=== PATIENT | female | born 1945 | race Caucasian/White ===

== ENCOUNTER 2017-03-15 11:07 | Inpatient (IN) | payer MEDICARE, BC ==
--- NOTE | ~2017-03-15 | CN ---
Consultation Report [facility] [address] [place]. [address] NAME: BRADLEY DALLAS : 47 STATUS : ADM IN PAT#: [id number] AGE: 72 ADM/REG DATE : 03/15/17 MR#: [id number] REPORT SERV DATE: 03/22/17 DICTATED BY: JOSE J ROSE DATE: 03/22/17 REPORT STATUS : Draft TRANSCRIBED BY: MODL DATE: 03/22/17 PSYCHIATRIC CONSULTATION DATE OF CONSULTATION: 03/22/2017 I reviewed this patient's current and old medical records. I discussed her status with Dr. Moss, who is her current hospitalist. I discussed the patient's history with her sister, Aishwarya. HISTORY OF PRESENT ILLNESS: She was admitted with confusion and fallings at her home. I was consulted to address a possible element of depression. She has had old and new CVAs in the left thalamus and in the distribution of the right posterior cerebral artery. Her level of agitation appears to fluctuate quite a bit, raising the possibility of a depressive element. PAST PSYCHIATRIC HISTORY: Her sister said that the patient was always careless about her grooming and house keeping. This aspect of her personality deteriorated further after she had her first stroke about two years ago. The patient also was experiencing progressive loss of eyesight, due to macular degeneration, and she was becoming increasingly dependent on neighbors, friends, and home care for support. Her sister reported no significant psychiatric issues, but she thought that the patient might have had a low grade, chronic depression which never was addressed. SOCIAL HISTORY: She is single. She lives alone. She never . 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 She quit driving about three years ago because of her deteriorating eyesight. MENTAL STATUS: She was awake. She opened her eyes and made brief eye contact in response to my calling her name. She complained of needing to urinate even though she had just had an episode of urinary incontinence about 5 minutes previously. She said "yes" and "no" in an inconsistent manner in response to my questions. She did not engage in any other conversation. DIAGNOSIS: Encephalopathy, post stroke. Probable vascular dementia. RECOMMENDATIONS: It is not at all clear that depression might be a consideration here. Dr. Hutton's recommendation for a trial of Depakote might be the best option. However, I would have no objection to an empirical trial of an antidepressant, at the discretion of the hospitalist. I will sign off. KIERRA/JEROME Jose J Rose M.D. Consultation Report [address] [place]. [address] NAME: BRADLEY DALLASRAINE : 47 STATUS : ADM IN PAT#: [id number] AGE: 72 ADM/REG DATE : 03/15/17 MR#: [id number] REPORT SERV DATE: 03/22/17 DICTATED BY: JOSE J ROSE DATE: 03/22/17 REPORT STATUS : Draft TRANSCRIBED BY: JEROME DATE: 03/22/17 / [id number] CC: Brannon Brian M.D.
--- NOTE | ~2017-03-15 | HP ---
History And Physical [place] [id number] [facility] [place]. [address] NAME: BRADLEY DALLAS : 47 STATUS : ADM IN [facility]#: [id number] AGE: 71 ADM/REG DATE : 03/15/17 MR#: [id number] REPORT SERV DATE: 03/15/17 DICTATED BY: GEOFFREY PURVIS DATE: 03/15/17 REPORT STATUS : Draft TRANSCRIBED BY: MODL DATE: 03/15/17 DATE OF ADMISSION: 03/15/2017 CHIEF COMPLAINT: Confused, falling. HISTORY OF PRESENT ILLNESS: Obtained from the patient, who is rather a poor historian due to her present medical condition, as well as the patient's sister at the bedside, and emergency room documents. Also, prior medical records available to us were thoroughly reviewed. According to the information available, the patient is a pleasant, 71-year-old white woman with a history of diabetes type 2, insulin dependent, hypertension with a previous stroke in 2014, who was brought over to the emergency room by EMS because of confusion and falls. The patient's family reported that for the last several days, the patient has been very confused, calling them at night, they did not know what happened, what is calling, they did not know exactly what is going on. The patient apparently had a fall and was hurting her right arm, and she was evaluated at [facility]. She apparently declined admission at that time and was sent home. She apparently fell again, and today when her sister went to check on her, she was found confused, up on the floor with urine and feces all over her house, unclean, apparently, unable to take care of herself. There are no other complaints besides the fact that her right arm hurts, but able to move spontaneously and upon command. There is no recent change in her medications, but the patient's sister states that because of her confusion, she may not be taking her medications right and has not been checking her sugar right. The patient lives alone apparently for several years now. In the emergency room, the patient was investigated and had a CT scan of the head/brain with no acute intracranial pathology and significant findings for urinary tract infection, elevated CK with rhabdomyolysis, as well as hypokalemia. Because of the above presentation with recurrent falls and the above findings, the patient was referred to the Hospitalist Service for further management and evaluation. Presently, the patient is comfortable in bed and she is asking to go home. Denies any chest pain. Denies any head trauma. She stated that she had only one fall when she hit her right arm/right shoulder. Denies any dysuria or hematuria. Denies any nausea, vomiting, or diarrhea. Denies any change in appetite. Denies any recent weight loss. She complains mostly of being weak in general and myalgias. PAST MEDICAL HISTORY: Significant for hypertension, significant for mild systolic dysfunction by 2D echo in 01/2015, history of diabetes type 2, insulin dependent, history of GERD, history of osteoarthritis, history of "bladder cancer," history of hyperlipidemia, history of CVA for which she was admitted in 2014 under Hospitalist Service, history of possible asthma/COPD. PAST SURGICAL HISTORY: Significant for bladder cancer tumor in 2009, initially followed by Dr. Yancey of Urology. The patient apparently had surgery and "chemotherapy." History of bilateral cataract surgery in , history of left finger tendon repair in 2004, appendectomy, tonsillectomy, and adenoidectomy. Cholecystectomy at age 27. ALLERGIES: PERCOCET, PENICILLIN, CODEINE, HYDROCODONE, TETRACYCLINES, LEVAQUIN. HOME MEDICATIONS: According to list provided, the patient is supposed to take Hyzaar 100/25 History And Physical [address] [address] NAME: BRADLEY DALLAS : 47 STATUS : ADM IN [facility]#: [id number] AGE: 71 ADM/REG DATE : 03/15/17 MR#: [id number] REPORT SERV DATE: 03/15/17 DICTATED BY: GEOFFREY PURVIS DATE: 03/15/17 REPORT STATUS : Draft TRANSCRIBED BY: MODL DATE: 03/15/17 one p.o. daily, Norvasc 5 mg p.o. daily, Humalog insulin according to sliding scale, Levemir insulin 64 units subcu b.i.d., naproxen, Aleve 220 mg p.o. daily p.r.n. pain. FAMILY HISTORY: Significant for hypertension and coronary artery disease. SOCIAL HISTORY: Denies tobacco abuse. She used to smoke over [id number]-yage smoking, apparently quit in 2012 or 2013. She had used E-cigarettes for a while. Denies alcohol abuse. Denies illicit recreational drug abuse. Lives alone. Presently retired. REVIEW OF SYSTEMS: Per H and P, otherwise negative in all review of systems. Please note, the comprehensive review of system was obtained and pertinent positives were including in the H and P. PHYSICAL EXAMINATION: GENERAL: Pleasant, cooperative, but pale, frail, overall ill appearing. VITAL SIGNS: Upon arrival in the emergency room, blood pressure 137/58, pulse 88, respiratory rate 15, temperature 98.1, oxygen saturation 100% on 2 L by nasal cannula. HEENT: With bilateral cataracts. External ocular movements intact. Throat, mild erythema. No exudate. Normocephalic with a small bruise around the left nondenominational and left infraorbital area. No other obvious head trauma noticed. NECK: Supple. No JVD. No bruits. No thyromegaly. No lymph nodes. LUNGS: Bilateral air entry with few bibasilar crackles. Good airway movement. No wheezing. HEART: Positive S1, S2. Regular rate and rhythm. Positive mitral regurgitation murmur at the apex. No rub. No gallop. PMI nondisplaced by palpation. ABDOMEN: Positive bowel sounds. Soft, nontender, no guarding, no hepatosplenomegaly. EXTREMITIES: Decreased range of motion with osteoarthritic changes. No clubbing, no cyanosis, no edema, no calf tenderness. +2 pulses. Noted upon palpation tenderness on the right arm/biceps area with decreased range of motion. Tender upon palpation and with range of motion of the right shoulder joint. No fluctuance noticed. Good distal sensation and good distal capillary refill. Good distal pulses. NEUROLOGIC: Alert and oriented x2. Less oriented to time, slightly confused, easily reoriented with global generalized weakness. Grossly nonfocal. Cranial nerves 2 through 12 grossly intact. Motor strength 4 to 5 out of 5, symmetrical and bilateral. Deep tendon reflexes 2/2, symmetrical, bilateral. BACK: With decreased range of motion. No focal localized tenderness. No CVA tenderness. SKIN: No bruises, no rashes, no lacerations (besides the above-mentioned changes). SIGNIFICANT LABORATORY DATA: EKG (personal reading) showed normal sinus rhythm at 81 beats per minute. Old inferior wall HI. No acute ST elevation. Chest x-ray (personal reading) showed no acute infiltrate. Atherosclerosis aorta. Urine drug screen negative. Serum drug screen negative. Sodium 142, potassium 2.8, chloride 106, bicarb 29, BUN 8, creatinine 0.81, glucose 207, calcium 8.7, magnesium 1.8. Total protein 7 with albumin 2.5. Total bilirubin 0.7. Alk phos 77, AST 38, ALT 17. CK 1200 and troponin-I 0.06. Urinalysis showed hazy appearance, protein more than 500, glucose 150, ketones trace, small blood, trace LE, white cells 21, and rare bacteria. White cell count 10.7, hemoglobin 12.3, platelet count 267. Pro-time 15.2, which is slightly elevated. CT scan of the head/brain History And Physical [address] [address] NAME: BRADLEY DALLAS : 47 STATUS : ADM IN PAT#: [id number] AGE: 71 ADM/REG DATE : 03/15/17 MR#: [id number] REPORT SERV DATE: 03/15/17 DICTATED BY: GEOFFREY PURVIS DATE: 03/15/17 REPORT STATUS : Draft TRANSCRIBED BY: JEROME DATE: 03/15/17 by preliminary report from emergency room showed no acute intracranial abnormality. Old left thalamus lacunar infarct. Chronic microvascular white matter ischemic changes. ASSESSMENT AND PLAN/PROBLEM LIST: The patient is a pleasant 71-year-old white woman, admitted with altered mental status, urinary tract infection, rhabdomyolysis, hypotension. IMPRESSION: 1. Neurologic problem:. a. Acute encephalopathy likely metabolic due to urinary tract infection. b. Cerebrovascular disease, status post prior cerebrovascular accident. c. Possible mild cognitive impairment. For all the above, the patient has been admitted on the Hospitalist Service. We are going to provide the monitor setting and schedule neurologic checks. Obtain an MRI of the brain. Treat potential reversible causes such as UTI and rhabdomyolysis. Check a TSH, vitamin B12, and folate as correction would greatly improve her quality of life. Continue aspirin 162 mg daily and continue blood pressure and cholesterol management. 1. Renal and problem:. a. UTI without hematuria/acute cystitis. Going to obtain a urine culture. Continue Rocephin 1 g IV daily. b. Proteinuria, possibly significant. We are going to obtain a 12-hour urine collection for proteinuria and creatinine clearance. c. History of bladder cancer. Continue to monitor clinically. Consider further imaging and followup. 2. Endocrinologic problem:. a. Diabetes type 2, insulin dependent, uncontrolled with complications. We are going to use sliding scale. Continue decreased dose of Levemir/Lantus. Check hemoglobin A1c. Provide diabetic education. b. Hyperlipidemia, mixed type by history. Presently on no treatment. Obtain a lipid profile in a.m. Provide low-cholesterol diet. 3. Cardiovascular:. a. Hypertension, essential hypertension. We are going to continue Norvasc and continue losartan without HCTZ. Use IV hydralazine p.r.n. for increased blood pressure. b. Elevated troponin-I, likely on demand subendocardial ischemia. Continue to monitor. Check a CK-MB, troponin-I, and EKG, and repeat a 2D echo. c. Mild systolic dysfunction by history. Ejection fraction 45% in 2014. Obtain repeated 2D echo. Continue aspirin. Continue ARB as tolerated. 4. Musculoskeletal problem:. a. Rhabdomyolysis, traumatic, possible only mild due to falls. Continue IV hydration. Monitor CK and troponin-I. b. Osteoarthritis, osteoporosis, deconditioning, and debilitation. Obtain Physical Therapy evaluation. c. Right shoulder and right arm pain, status post trauma. Obtain records from [facility]. Obtain Orthopedic consult for "Physical Therapy evaluation." Obtain imaging. d. Status post fall, recurrent. 5. Miscellaneous:. History And Physical [address] [address] NAME: BRADLEY DALLAS : 47 STATUS : ADM IN [facility]#: [id number] AGE: 71 ADM/REG DATE : 03/15/17 MR#: [id number] REPORT SERV DATE: 03/15/17 DICTATED BY: GEOFFREY PURVIS ION DATE: 03/15/17 REPORT STATUS : Draft TRANSCRIBED BY: MODL DATE: 03/15/17 a. Hypokalemia and electrolyte abnormalities. Replace potassium. Check magnesium, phosphorus, and activate electrolyte replacement protocol. b. Gastroesophageal reflux disease without esophagitis. Provide anti- GERD/anti-reflux instructions and dietary changes. Use Protonix 40 mg p.o. daily. c. Hypoalbuminemia, possible malnutrition. Check a prealbumin level. PROGNOSIS: Moderately good for this admission. Discussed with the patient and the patient's sister present at bedside. Questions were answered in full. Please note, also the written H and P, written orders, and instructions. Please note, the patient is a full code at this moment as discussed with the patient and family at bedside. REAGAN/JEROME Geoffrey Purvis M.D. / [id number] CC: SIXTO ELENA
--- NOTE | ~2017-03-15 | CN ---
Consultation Report [facility] [address] [place]. [address] NAME: BRADLEY DALLAS : 47 STATUS : ADM IN [facility]#: [id number] AGE: 72 ADM/REG DATE : 03/15/17 MR#: [id number] REPORT SERV DATE: 03/23/17 DICTATED BY: KRISTI YI DATE: 03/22/17 REPORT STATUS : Draft TRANSCRIBED BY: MODL DATE: 03/22/17 CARDIOLOGY CONSULTATION DATE OF CONSULTATION: INDICATION: Cryptogenic stroke. HISTORY: The patient is a 72-year-old white female, who presented 03/15/2017 with confusion and falling. She has a previous history of stroke in 2014. The neurologist states that at the time of her EEG there was a question as to whether or not she may have had atrial fibrillation. 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 Rest to determine whether or not anticoagulation therapy or other cardiac medications would be appropriate. The patient is an extremely poor historian. Her sister has power of employment law attorney and I have not been able to get in touch with her at the phone numbers that we have. The patient states that she does live independently, but she is extremely unkempt. Apparently, she has always been careless about her grooming, but her hygiene at this evaluation appears to be quite poor. Presently, she is in [facility]. She underwent toenail debridement in the OR on 03/18/2017 due to poor hygiene and self neglect. She had a history of rhabdomyolysis after her fall which has resolved. The patient states that she sets out and takes her own medication, although it is not clear to me that she is competent to adhere to any structured regimen on her own. She has recently been started on Keppra due to the finding of a seizure disorder. Medications prior to admission amlodipine 5 per day, insulin 64 units b.i.d., insulin Humalog, insulin lispro, sliding scale, losartan hydrochlorothiazide 100/25 one tablet daily, and naproxen 220 p.r.n. ALLERGIES OR INTOLERANCES: Oxycodone, penicillin, codeine, hydrocodone, acetaminophen, tetracycline, and levofloxacin. SOCIAL HISTORY: As mentioned, she lives alone. She has never been . 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 She has [id number] smoking history having quit in 2013 or 2013. Negative for alcohol use. FAMILY HISTORY: Positive for hypertension and coronary artery disease. PAST MEDICAL HISTORY/REVIEW OF SYSTEMS: History of bladder cancer in 2009 with previous history of surgery and chemotherapy. She has had bilateral cataract surgery in , left finger tendon repair in 2004, previous appendectomy, tonsillectomy, and adenoidectomy. She had a cholecystectomy at age 27. Medical history is positive for hypertension, type 2 Consultation Report [place] [id number] [facility] [place]. [address] NAME: BRADLEY DALLAS : 47 STATUS : ADM IN [facility]#: [id number] AGE: 72 ADM/REG DATE : 03/15/17 MR#: [id number] REPORT SERV DATE: 03/23/17 DICTATED BY: KRITSI YI DATE: 03/22/17 REPORT STATUS : Draft TRANSCRIBED BY: JEROME DATE: 03/22/17 diabetes, GERD, osteoarthritis, hyperlipidemia, and the previous stroke. She has underlying COPD. An echocardiogram from 02/14/2015 showed global hypokinesis with EF of 45%. PHYSICAL EXAMINATION: GENERAL: 72-year-old white female, with poor hygiene, somewhat confused, although she will answer questions that are pointed, some of the questions similar responses are confabulated. HEENT: She has poor dentition. Sclerae are white. JVD is not elevated. CHEST: There are no crackles. CARDIAC: S1 normal, S2 is physiologic. No S3 or S4. ABDOMEN: Soft. EXTREMITIES: Without edema. Skin care is poor with flaking and desquamation. She has mittens on her hands to prevent injury due to underlying agitation. LABORATORY DATA: Echocardiogram from 02/14/2015 shows an EF of 55% with mild diastolic dysfunction. No significant valvular disease. Carotid studies are pending. MRI shows the infarcts as described above with an acute lacunar infarcts in the right thalamus. There was a second MRI from 03/15/2017 which shows the infarct involving the medial right temporal lobe, right occipital and right thalamus. Her BUN on admission was 184, BUN 6, creatinine 0.75, glucose 178. Troponin on admission was 0.06 with a CPK of 827. White count on admission was 10.7, hemoglobin 12.8, platelets are 64,000. ECG thus far have shown only sinus rhythm with occasional PACs. There was some strips showing sinus tachycardia. There was no documented atrial fibrillation. IMPRESSION: Recurrent strokes in a 72-year-old white female with multiple medical and psychiatric issues. She would not be a candidate for warfarin. I do not believe she would be able to manage this medication. Whether or not she could take one of the newer anticoagulants would depend on how attentive her family is to making sure she gets her medications appropriately. I do not believe that she has the wherewithal to adhere to medical regimen with medications that would be dangerous if they were either inadvertently overdosed or if the doses were missed. I will try to contact her sister to get a better understanding of the patient's ability to comply before making any recommendations. Further advice is forthcoming. PARVEEN/JEROME Kristi Yi M.D. / [id number] CC: Colten Ramey M.D. Consultation Report [address] [address] NAME: BRADLEY DALLAS : 47 STATUS : ADM IN [facility]#: [id number] AGE: 72 ADM/REG DATE : 03/15/17 MR#: [id number] REPORT SERV DATE: 03/23/17 DICTATED BY: KRISTI YI DATE: 03/22/17 REPORT STATUS : Draft TRANSCRIBED BY: JEROME DATE: 03/22/17 [facility]
--- NOTE | ~2017-03-15 | CN ---
Consultation Report [facility] [address] [place]. [address] NAME: BRADLEY DALLAS : 47 STATUS : ADM IN [facility]#: [id number] AGE: 71 ADM/REG DATE : 03/15/17 MR#: [id number] REPORT SERV DATE: 03/16/17 DICTATED BY: RYLEY MONTANEZ DATE: 03/16/17 REPORT STATUS : Draft TRANSCRIBED BY: MODMichelle DATE: 03/16/17 CONSULTATION DATE OF CONSULTATION: CHIEF COMPLAINT: Arm pain, status post fall. HISTORY OF PRESENT ILLNESS: This is a 71-year-old, white female, with history of diabetes, hypertension, stroke in 2015, who presents with confusion and falls. She apparently had become confused over several days and was found at home confused, unkempt, and wandering around her house. She has presented with altered mental status. In the ER, she had a CT scan with no acute intracranial pathology. She did have a UTI and elevated CK as well as hypokalemia. She complains only of right arm pain. She has been difficult to get a history with her waxing and waning mental status. PAST MEDICAL HISTORY: Significant for hypertension, systolic dysfunction, insulin dependent diabetes mellitus, GERD, osteoarthritis, bladder cancer, hyperlipidemia, CVA. SURGICAL HISTORY: Significant for bladder cancer, tumor, cataracts, finger tendon repair. Tonsillectomy, adenoidectomy, cholecystectomy. ALLERGIES: PERCOCET, PENICILLIN, CODEINE, HYDROCODONE, TETRACYCLINES, LEVAQUIN. MEDICATIONS: Hyzaar, Norvasc 5, insulin sliding scale, Aleve. FAMILY HISTORY: Significant for hypertension, coronary artery disease. SOCIAL HISTORY: The patient denies tobacco, alcohol abuse. She has a significant 100 pack- year smoking history. Denies alcohol. REVIEW OF SYSTEMS: Otherwise negative. PHYSICAL EXAMINATION: VITAL SIGNS: She is afebrile. Vital signs are stable. GENERAL: She is alert, somewhat disoriented, reasonably cooperative, but she essentially falls asleep during mid sentence while trying to follow commands and then intermittently wakes up and has a behavioral pain response, this is disproportionate to physical findings when the skin of her right arm is touched. HEENT: Positive for bilateral cataracts and extraocular movements are intact. No scleral icterus. Oropharynx is clear. NECK: Supple, nontender. CARDIOVASCULAR: Regular rate and rhythm. ABDOMEN: Soft, nontender. Consultation Report [address] [place]. [address] NAME: BRADLEY DALLAS : 47 STATUS : ADM IN [facility]#: [id number] AGE: 71 ADM/REG DATE : 03/15/17 MR#: [id number] REPORT SERV DATE: 03/16/17 DICTATED BY: RYLEY MONTANEZ DATE: 03/16/17 REPORT STATUS : Draft TRANSCRIBED BY: JEROME DATE: 03/16/17 SKIN: Warm and dry. LYMPH: No axillary or inguinal lymphadenopathy. EXTREMITIES: She has disproportionate pain to light touch of the skin. The compartments are soft and the brachium down in the forearm, radial, median ulnar nerves are intact. As far as I can tell, she has active motion to 100 degrees, but falls asleep in the middle of the exam and fails to comply with further examination. From the rotator cuff exam, I could get it seemed to be intact. LABORATORY DATA: EKG shows old inferior wall RI. No ST elevation. Chest x-ray shows no infiltrates. Sodium 142, potassium 3.8, chloride 106, albumin 2.5, creatinine 0.81. AST 38, ALT 17, CK 1200. Troponin I 0.06. Urinalysis showed glucose ketones and leukocyte esterase. X-ray showed no obvious fracture. There is some sclerosis of the GT. There is no dislocation of the shoulder, humerus is negative, forearm is negative, possible old distal radius fracture, nondisplaced with sclerotic margin. ASSESSMENT: Fluctuating mental status. History of stroke and encephalopathy. She has skin hypersensitivity in the right arm. She could have radiculopathy which is likely chronic. I do not detect any obvious structural damage to the arm or shoulder. I would recommend conservative treatment. If she persists to complain of problems after four or six weeks of conservative treatment, we could see her back in the office as an outpatient. No restrictions. Full active range of motion of the shoulder. BSS/MODL Ryley Montanez M.D. / [id number] CC: Colten Iglesias M.D.
--- NOTE | ~2017-03-15 | DS ---
Discharge Summary [facility] [address] [facility] [place]. [address] NAME: BRADLEY DALLAS : 47 STATUS : ADM IN [facility]#: [id number] AGE: 72 ADM/REG DATE : 03/15/17 MR#: [id number] REPORT SERV DATE: 03/30/17 DICTATED BY: KERWIN RUSSELL DATE: 03/29/17 REPORT STATUS : Draft TRANSCRIBED BY: JEROME DATE: 03/29/17 ADMISSION DATE: 03/15/2017 DISCHARGE DATE: 03/29/2017 CONSULTATION: Neurology, Dr. Sultana. DISCHARGE DIAGNOSES: 1. Acute ischemic infarct involving the medial right temporal lobe and medial right occipital lobe, and a small acute ischemic infarct in the right thalamus. 2. Metabolic encephalopathy, resolved. 3. Possible seizure disorder. 4. Urinary tract infection. 5. Hypertension. 6. Troponin elevation secondary to demand ischemia. 7. Moderate protein-calorie malnutrition. 8. Major depression. 9. Severe onychomycosis. 10.Severe hematocytosis. DISCHARGE CONDITION: Critical. HISTORY OF PRESENT ILLNESS: For detailed HPI, please make reference to Dr. Geoffrey Munoz's dictation on 03/22/2017. In brief, this is a 71-year-old female with medical history of diabetes mellitus, hypertension, previous CVA, who presented to the emergency room department with confusions and recurrent fall. Per family report, it was noted that the patient had been very confused, yelling out people's name at night, remains agitated. She was evaluated at [facility], where she declined admission and was sent home, but continued to have recurrent falls with worsening confusion state, hence the family members called the EMS and decided to bring her to emergency room of [facility]. In the ER, vital signs, blood pressure was 137/58, pulse was 88, respiratory rate 15, temperature 98.1, saturating 100% on 2 L of oxygen. Physical exam, she was alert and oriented only x2. LABORATORY DATA: Significant for potassium of 2.8, creatinine of 0.81, WBC of 10.7, hemoglobin of 12.3, platelets of 267. Chest x-ray showed no acute infiltrate. CT scan of the head and brain showed old left thalamus lacunar infarct with chronic white matter ischemic changes. Urinalysis was positive for leukocyte esterases, white cells 21, bacteria present. An assessment of acute encephalopathy, likely metabolic, due to electrolyte abnormalities and urinary tract infection with possible CVA was made in the ER. The patient was admitted to the Hospitalist Service. Acute metabolic encephalopathy. The patient continued to have worsening of mental status. Neurology was consulted. Recommended to have an EEG and to repeat an MRI. MRI confirmed the presence of acute ischemic infarct involving the mild right temporal lobe and mid right occipital lobe, and a small acute ischemic infarct in the right thalamus. The patient's overall mental status remained unchanged. She is only oriented x1 throughout the course of this admission. She is also minimally responsive, Discharge Summary [place] [id number] [facility]. [address] NAME: BRADLEY DALLAS : 47 STATUS : ADM IN [facility]#: [id number] AGE: 72 ADM/REG DATE : 03/15/17 MR#: [id number] REPORT SERV DATE: 03/30/17 DICTATED BY: KERWIN RUSSELL DATE: 03/29/17 REPORT STATUS : Draft TRANSCRIBED BY: JEROME DATE: 03/29/17 unable to tolerate oral intake. The patient's family members decided to change her code status to DNR status. Also declined any invasive or aggressive procedure as per the patient's prior expressed wishes. Given the patient's overall poor prognosis, family requested hospice to be consulted. Hospice came and evaluated the patient. Currently, she has been with hospice placement. Urinary tract infection. The patient's urine culture grew Enterococcus faecalis pansensitive. The patient received IV levofloxacin for UTI, completed a total of seven days treatment. Seizure disorder. The patient's EEG was inconclusive; however, given the severity of the patient's acute CVA, Neurology recommended the patient to continue on Depakote for subclinical seizures. Major depression. Psychiatry evaluated the patient. Also, agreed the patient to continue Depakote for possible mood disorder. Diabetes mellitus type 2. The patient's blood sugar was tightly controlled through the course of this admission with insulin therapy. Protein-energy malnutrition (moderate). The patient continued to have significant reduced oral intake. The patient's family do not want enteric feeding or invasive form of feeding per the patient's already expressed wishes. Based on all this, the patient is currently receiving IV fluids and tolerating minimal p.o. intake. We will continue to encourage p.o. intake. DISCHARGE MEDICATIONS: 1. Norvasc 5 mg p.o. daily. 2. Aspirin 81 mg p.o. daily. 3. Atorvastatin 80 mg p.o. at bedtime. 4. Plavix 75 mg p.o. daily. 5. Docusate 100 mg p.o. b.i.d. 6. Losartan 100 mg p.o. daily. 7. Depakote daily. DISCHARGE DISPOSITION: Hospice versus SNF pending assessment. DISCHARGE ACTIVITIES: As tolerated. Greater than 30 minutes was used to prepare this patient's discharge, reconcile medication, and advise the patient on discharge plans and followup. DICTATED BY: Kerwin Russell MD IOO/JEROME Discharge Summary [address] [address] NAME: BRADLEY DALLAS : 47 STATUS : ADM IN PAT#: [id number] AGE: 72 ADM/REG DATE : 03/15/17 MR#: [id number] REPORT SERV DATE: 03/30/17 DICTATED BY: KERWIN RUSSELL DATE: 03/29/17 REPORT STATUS : Draft TRANSCRIBED BY: JEROME DATE: 03/29/17 Kerwin Russell MD / [id number] CC: MD Brannon Dong M.D.
--- NOTE | ~2017-03-15 | DS ---
Discharge Summary [place] [place]. [address] NAME: BRADLEY DALLAS : 47 STATUS : DIS IN PAT#: [id number] AGE: 72 ADM/REG DATE : 03/15/17 MR#: [id number] REPORT SERV DATE: 03/31/17 DICTATED BY: KERWIN RUSSELL DATE: 03/30/17 REPORT STATUS : Draft TRANSCRIBED BY: MODL DATE: 03/30/17 ADMISSION DATE: 03/15/2017 DISCHARGE DATE: 03/30/2017 ADDENDUM: This patient was discharged by me on 03/29/2017; however, the patient's discharge was held overnight because of lack of bed availability at the SNF. No acute event was noted overnight. The patient has been accepted to SNF and will be leaving the hospital today. The patient will be discharged on same medication that has been reconciled by me a day prior to this discharge. DICTATED BY: MD EMORY Dong/JEROME Kerwin Russell MD / [id number] CC: MD Brannon Dong M.D.
--- NOTE | ~2017-03-15 | OP ---
Record Of Operation [facility] [address] [place]. [address] NAME: BRADLEY CHAKRABORTY : 47 STATUS : ADM IN [facility]#: [id number] AGE: 71 ADM/REG DATE : 03/15/17 MR#: [id number] REPORT SERV DATE: 03/19/17 DICTATED BY: KRISTINA BATRES DATE: 03/18/17 REPORT STATUS : Draft TRANSCRIBED BY: MODL DATE: 03/18/17 DATE OF PROCEDURE: 03/18/2017 SURGEON: Kristina Batres D.P.M. PREOPERATIVE DIAGNOSIS: Severe onychomycosis with onychogryphosis, which was not manageable in a hospital room setting. PROCEDURE: Extensive debridement of all nails 1 through 5 bilaterally with avulsion of the left second digital nail. Debridement of skin partial thickness in nature to all digits as well as to the dorsum of bilateral feet. ANESTHESIA: Monitored anesthesia care. No local anesthesia was injected into the patient. HEMOSTASIS: No pneumatic ankle tourniquet was utilized. ESTIMATED BLOOD LOSS: No blood loss was noted. MATERIALS: No materials were utilized. PATHOLOGICAL SPECIMENS: None were sent. DESCRIPTION OF PROCEDURE: The patient had been previously identified in holding as 71-year- old white female, Bradley Chakraborty. Medical clearance had been given for this procedure by Dr. Webb. Consent had been given for anesthesia as well as for the debridement procedure from her sister by telephone call. The patient was taken to the operating room, placed on the operating room table in a supine position. Adequate IV sedation was achieved with the use of nail nippers. Nails were debrided extensive in nature. They were severely gryphotic, some reaching the level of 5 inches along with dorsal incurvation as well as plantar incurvation. No open lesions were noted with exception of left second digit nail that when debrided was avulsed from the proximal nail border. No damage was noted to the nail bed. No traumatic injury had been caused from these nails. Betadine solution, dry sterile compressive dressing was placed above the patient's left foot over the second digital nail bed. The patient tolerated the procedure and anesthesia well, left the operating room with vital signs stable and vascular status at preoperative levels and was returned to the general medical floor for further care under Dr. Webb. Partial thickness debridement of skin to the dorsal aspect of bilateral feet as well as interdigitally was done, partial thickness in nature with #10 blade. BB/JEROME Kristina Batres D.P.M. Record Of Operation [address] [address] NAME: BRADLEY CHAKRABORTY : 47 STATUS : ADM IN PAT#: [id number] AGE: 71 ADM/REG DATE : 03/15/17 MR#: [id number] REPORT SERV DATE: 03/19/17 DICTATED BY: KRISTINA BATRES DATE: 03/18/17 REPORT STATUS : Draft TRANSCRIBED BY: JEROME DATE: 03/18/17 / [id number] CC: Colten Iglesias M.D.
--- NOTE | ~2017-03-15 | IDS ---
Interim Discharge Summary [facility] [address] [place]. [address] NAME: BRADLEY DALLAS : 47 STATUS : ADM IN PAT#: [id number] AGE: 71 ADM/REG DATE : 03/15/17 MR#: [id number] REPORT SERV DATE: 03/21/17 DICTATED BY: DARIO DE LA PAZ DATE: 03/21/17 REPORT STATUS : Draft TRANSCRIBED BY: MODMichelle DATE: 03/21/17 ADMISSION DATE: 03/15/2017 DISCHARGE DATE: Date of dictating this summary is 03/21/2017. CONDITION: Condition of the patient so far is guarded. CODE STATUS: Do not resuscitate and comfort measures only. This code status is per her sister, Aishwarya who has the power of bankruptcy attorney over the patient. DIAGNOSES: 1. So far include acute on chronic encephalopathy secondary to acute on chronic several or multiple strokes, both in the past and in the present and also vascular dementia. 2. Psychiatric consult is pending. Neurology has already consulted on the patient and plan to do an EEG to make sure that we are not missing seizures in this patient who continues to be confused. 3. Chronic encephalopathy secondary to multiple old strokes and vascular dementia. 4. Poor self-care with severe onychomycosis and severe dermatophytosis in both feet which was operated upon by a shadowgraph scale operator. 5. Right arm pain probably from radiculopathy which was evaluated by orthopedic surgeon as the patient had fallen in the house. The orthopedic surgeon has found that no further intervention is required here because there are no fractures and the pain is probably from radiculopathy and just suggested conservative measures. 6. Urinary tract infection with urine culture positive for enterococcus, and the patient has received Levaquin for this and now I am stopping Levaquin to avoid risk of C. diff in this patient. 7. Rhabdomyolysis and dehydration resolved with IV fluids. BRIEF HOSPITAL COURSE: This patient is a very unfortunate 71-year-old patient who was found very confused and with poor self-care covered in urine and feces, by her sister who was brought into the ER in extreme altered mental status. A CT scan of the head revealed no evidence of any stroke at that time but the patient did have a UTI and had rhabdomyolysis. Hence, the patient was admitted for IV fluids and IV antibiotics. As her encephalopathy continued, an MRI of the brain that was ordered showed acute multiple small strokes in both hemispheres. The patient had also had multiple old strokes according to sister Aishwarya. Hence, the patient's status was probably from vascular dementia and acute strokes with a combination of chronic old strokes too. At this time, the patient was given supportive care and psychiatrist was consulted. As we did not do not have Dr. Leal over here on the weekend, we have been managing her encephalopathy with p.[place] and Yanna. She has been doing well and stays calm but there are some periods where she gets extremely agitated too. Neurologist will also suggest treatment for this encephalopathy as they have seen her today. Neurology will also do an EEG today to make sure that the patient is not having a seizure. Other than this, the patient is supportive care and her code status is DNR. Final disposition of this patient will be the patient going to a usp facility in the next few days once Neurology does an EEG and suggest final treatment plan for her. Interim Discharge Summary [address] [address] NAME: BRADLEY DALLAS : 47 STATUS : ADM IN PAT#: [id number] AGE: 71 ADM/REG DATE : 03/15/17 MR#: [id number] REPORT SERV DATE: 03/21/17 DICTATED BY: DARIO DE LA PAZ DATE: 03/21/17 REPORT STATUS : Draft TRANSCRIBED BY: MODL DATE: 03/21/17 This is my interim summary and this patient will be seen by my partner on 03/22/2017. RRA/MARRYL Dario De La Paz M.D. / [id number] CC: Colten Iglesias M.D.
--- NOTE | ~2017-03-15 | EEG ---
Electroencephalogram [place] [address] [place]. [address] NAME: BRADLEY DALLAS : 47 STATUS : ADM IN [facility]#: [id number] AGE: 72 ADM/REG DATE : 03/15/17 MR#: [id number] REPORT SERV DATE: 03/22/17 DICTATED BY: SHANNAN HUTTON DATE: 03/22/17 REPORT STATUS : Draft TRANSCRIBED BY: MODL DATE: 03/22/17 ELECTROENCEPHALOGRAPHY REPORT REQUESTING PHYSICIAN: Dr. Webb. INTERPRETING PHYSICIAN: Shannan Hutton MD-Neurology. REASON FOR EEG: Episodes of agitation. History of stroke. Rule out seizures. 23 surface electrodes, 10-20 international placement was used. Photic stimulation was performed. Video monitoring was utilized. The patient appeared restless throughout the study sedated. The background activity consisted of moderate voltage, poorly organized 7 to 8 cycles per second located in the posterior head regions. Underlying slower frequencies were seen anteriorly predominantly in the frontotemporal regions. Increase of slower frequencies was also noted in the right parietal area. No epileptiform activity was seen during the study. The patient did not follow commands. Frequent movement and blinking artifact was noted. The patient's laboratory monitor showed intermittent episodes of irregularly irregular heart beat, rule out atrial fibrillation. IMPRESSION: ABNORMAL EEG CHARACTERIZED BY PRESENCE OF DIFFUSE SLOWING OF CEREBRAL ACTIVITY. INCREASE OF SLOWER FREQUENCY SEEN ANTERIORLY IN THE RIGHT PARIETAL REGION MAY SUGGEST PRESENCE OF PHYSIOLOGICAL DISTURBANCE EMANATING FROM THESE AREAS. OVERALL THE EEG IS COMPATIBLE WITH DIFFUSE ENCEPHALOPATHY. CLINICAL CORRELATION IS RECOMMENDED. KEVYN/JEROME Shannan Hutton MD / [id number] CC: Colten Ramey M.D.
[~2017-03-15 11:07] MED LIST: ACTOS30 PO; ADVAIR250 INH; ADVIL PO; ALLEGRA180 PO; ASA5GR PO; ASAB PO; AVALIDE1 TA2 PO; COREG6 PO; HUMALOGPEN SC; HYZAAR 100/25 T1 TAB PO; KLOR-CON M1010 MEQ PO; LEVEMIR SC; LIPITOR10 PO; LIPITOR40 PO; NORV5 PO; OPTHALMIC OPH; PLAVIX PO; PRILO PO; PROTONIX PO; REFRESH OPH; VICTOZA18 MG/3 ML SC; XOPENEX HFA INH; ZYRTEC ALLGY10 MG PO
[2017-03-15] MEDS ORDERED: HYZAAR 100/25 T1 TAB PO (12:05)
[2017-03-15] MEDS ORDERED: ALEVE220 MG PO (12:06)
[2017-03-15] MEDS ORDERED: LEVEMIR SC (12:06)
[2017-03-15] MEDS ORDERED: NORV5 PO (12:06)
[2017-03-15] MEDS ORDERED: HUMALOG SC (12:06)
[2017-03-15 12:56] LABS: BASOPHILS 0.1 %; BASOPHILS ABSOLUTE 0.01 10/3/uL (0.0-0.16); EOSINOPHILS 0 %; HEMOGLOBIN 12.8 g/dL (12.0-16.0); IMMATURE GRANULOCYTES 0.2 %; IMMATURE GRANULOCYTES ABSOLUTE 0.02 10/3/uL (0.0-0.11); LYMPHOCYTES 12.5 %; LYMPHOCYTES ABSOLUTE 1.33 10/3/uL (0.67-4.30); MEAN CORPUS HGB CONC 35.3 g/dL (32.0-36.0); MEAN CORPUSCULAR HEMOGLOB 30.5 pg (26.0-34.0); MEAN CORPUSCULAR VOLUME 86.4 fL (80-100); MEAN PLATELET VOLUME 11.2 fL (9.2-13.0); MONOCYTES 8.4 %; NEUTROPHILS 78.8 %; NEUTROPHILS ABSOLUTE 8.41 10/3/uL (2.02-8.40); PLATELET COUNT 267 10/3/uL (150-400); RBC DISTRIBUTION WIDTH 13.6 % (12.0-16.0); WHITE BLOOD CELLS 10.7 10/3/uL (4.5-10.5)
[2017-03-15 12:57] LABS: HEMATOCRIT 36.3 % (36.0-48.0); MANUAL DIFF NO %
[2017-03-15 13:05] LABS: INTERNATIONAL NORMAL RATI 1.2 UNITS (-); PARTIAL THROMBO TIME 25.7 SEC (22.5-37.2); PROTIME (NOT ORD) 15.2 SEC (12.0-14.5)
[2017-03-15 13:25] LABS: BUN (BLOOD UREA NITROGEN) 8 MG/DL (6-23); CALCIUM, SERUM 8.7 MG/DL (8.5-10.4); CHLORIDE, SERUM 106 MMOL/L (96-112); CO2 (CARBON DIOXIDE) 29 MMOL/L (24-34); CREATININE 0.81 MG/DL (0.55-1.02); GFR AFRICAN AMERICAN 85 ML/MIN (>=60); GFR NON AFRICAN AMERICAN 74 ML/MIN (>=60); GLUCOSE, SERUM 207 MG/DL (60-99); SALICYLATE 2.1 MG/DL (-); SGPT(ALT) 17 U/L (5-65); SODIUM, SERUM 142 MMOL/L (135-148); TOTAL BILIRUBIN 0.7 MG/DL (0-1.2)
[2017-03-15 13:26] LABS: A/G RATIO 0.6 (0.7-1.9); ACETAMINOPHEN LEVEL (TYLENOL) < 2.0 MCG/ML (10.0-20.0); ALBUMIN 2.5 G/DL (3.5-5.0); ALCOHOL < 10 MG/DL (0); ALKALINE PHOSPHATASE 77 U/L (45-117); CPK 1200 U/L (0-200); GLOBULIN 4.5 G/DL (2.5-4.1); POTASSIUM, SERUM 2.8 MMOL/L (3.5-5.3); TROPONIN I 0.06 NG/ML (<0.05)
[2017-03-15 13:27] LABS: ASCORBIC ACID (UR NOT ORDER) NEG (NEG); BILIRUBIN, URINE NEGATIVE (NEG); ER URINALYSIS TAT 0 Hrs 23 Mins; KETONE, URINE TRACE MG/DL (NEG); LEUKOCYTE ESTERASE(NOT OR TRACE (NEG); NITRITE (URINE) NEG (NEG); WBC (NOT ORDERED) (RFLEX) 21 (0-5)
[2017-03-15 13:27] LABS: SGOT(AST) 38 U/L (5-40)
[2017-03-15 13:31] LABS: AMPHETAMINES (NOT ORD) NEG (NEG); BARBITURATES (NOT ORDERED NEG (NEG); BENZODIAZEPINES (NOT ORD) NEG (NEG); CANNABINOIDS (THC) NEG (NEG); COCAINE (NOT ORDERED) NEG (NEG); OPIATES NEG (NEG); PHENCYCLIDINE(PCP) NEG (NEG)
[2017-03-15 13:32] LABS: TRICYCLICS NEG (NEG)
[2017-03-15 19:05] LABS: PROCALCITONIN 0.08 ng/mL (<0.5)
[2017-03-15 19:21] LABS: PHOSPHORUS, SERUM 2.8 MG/DL (2.5-4.5); PREALBUMIN 12.1 MG/DL (17.0-43.0)
[2017-03-15 19:24] LABS: FOLATE 17.1 NG/ML (>5.2)
[2017-03-15 22:51] LABS: CPK 1158 U/L (0-200)
[2017-03-15 22:56] LABS: CK-MB 4.2 NG/ML; TROPONIN I 0.06 NG/ML (<0.05)
[2017-03-16 06:41] LABS: BASOPHILS 0.3 %; BASOPHILS ABSOLUTE 0.02 10/3/uL (0.0-0.16); EOSINOPHILS 1.8 %; EOSINOPHILS ABSOLUTE 0.13 10/3/uL (0.0-0.53); HEMOGLOBIN 13.1 g/dL (12.0-16.0); IMMATURE GRANULOCYTES 0.1 %; IMMATURE GRANULOCYTES ABSOLUTE 0.01 10/3/uL (0.0-0.11); LYMPHOCYTES 25.7 %; LYMPHOCYTES ABSOLUTE 1.85 10/3/uL (0.67-4.30); MANUAL DIFF NO %; MEAN CORPUS HGB CONC 34.5 g/dL (32.0-36.0); MEAN CORPUSCULAR HEMOGLOB 30.1 pg (26.0-34.0); MEAN CORPUSCULAR VOLUME 87.4 fL (80-100); MEAN PLATELET VOLUME 10.9 fL (9.2-13.0); MONOCYTES 8.9 %; MONOCYTES ABSOLUTE 0.64 10/3/uL (0.21-1.20); NEUTROPHILS 63.2 %; NEUTROPHILS ABSOLUTE 4.56 10/3/uL (2.02-8.40); PLATELET COUNT 291 10/3/uL (150-400); RBC DISTRIBUTION WIDTH 13.5 % (12.0-16.0); RED CELL COUNT 4.35 10/6/uL (4.0-5.6); WHITE BLOOD CELLS 7.2 10/3/uL (4.5-10.5)
[2017-03-16 06:48] LABS: INTERNATIONAL NORMAL RATI 1.2 UNITS (-); PARTIAL THROMBO TIME 34.8 SEC (22.5-37.2); PROTIME (NOT ORD) 15.2 SEC (12.0-14.5)
[2017-03-16 07:02] LABS: ALBUMIN 2.3 G/DL (3.5-5.0); BUN (BLOOD UREA NITROGEN) 6 MG/DL (6-23); CALCIUM, SERUM 8.4 MG/DL (8.5-10.4); CHLORIDE, SERUM 108 MMOL/L (96-112); CHOLESTEROL 197 MG/DL (< 200); CO2 (CARBON DIOXIDE) 27 MMOL/L (24-34); CREATININE 0.59 MG/DL (0.55-1.02); GFR AFRICAN AMERICAN 108 ML/MIN (>=60); GFR NON AFRICAN AMERICAN 93 ML/MIN (>=60); HDL CHOLESTEROL 49 MG/DL (> 49); LDL CHOLESTEROL 110 MG/DL (< 130); NON-HDL CHOLESTEROL 148 MG/DL (< 160); PHOSPHORUS, SERUM 2.5 MG/DL (2.5-4.5); SODIUM, SERUM 143 MMOL/L (135-148); TRIGLYCERIDE 191 MG/DL (< 150)
[2017-03-16 07:04] LABS: CPK 827 U/L (0-200); GLUCOSE, SERUM 74 MG/DL (60-99); POTASSIUM, SERUM 2.4 MMOL/L (3.5-5.3)
[2017-03-16 07:05] LABS: TROPONIN I 0.05 NG/ML (<0.05)
[2017-03-16 09:04] LABS: CREAT SERUM (NOT ORDER) 0.59 MG/DL (0.53-1.43)
[2017-03-16 09:05] LABS: # HR UR COLLECT (NOT ORD) 12; T.V. 12HR URINE (NOT ORD) 550 ML (300-800); URINE TOTAL VOL (NOT ORD) 550 ML
[2017-03-16 09:20] LABS: CREAT CLEAR (NOT ORDER) 98.5 ML/MIN (75-115); CREATININE, URINE 76.1 MG/DL; T.P. 12HR UR (NOT ORDER) 1908 MG/12HR (20-75)
[2017-03-16 09:23] LABS: URINE CREAT 0.41 G/T VOL (0.6-2.8)
[2017-03-17 06:40] LABS: BASOPHILS 0.4 %; BASOPHILS ABSOLUTE 0.02 10/3/uL (0.0-0.16); EOSINOPHILS 3.7 %; EOSINOPHILS ABSOLUTE 0.21 10/3/uL (0.0-0.53); HEMATOCRIT 37.2 % (36.0-48.0); HEMOGLOBIN 12.4 g/dL (12.0-16.0); IMMATURE GRANULOCYTES 0.2 %; IMMATURE GRANULOCYTES ABSOLUTE 0.01 10/3/uL (0.0-0.11); LYMPHOCYTES 38.6 %; LYMPHOCYTES ABSOLUTE 2.19 10/3/uL (0.67-4.30); MANUAL DIFF NO %; MEAN CORPUS HGB CONC 33.3 g/dL (32.0-36.0); MEAN CORPUSCULAR HEMOGLOB 29.9 pg (26.0-34.0); MEAN CORPUSCULAR VOLUME 89.6 fL (80-100); MEAN PLATELET VOLUME 11.1 fL (9.2-13.0); MONOCYTES 9.2 %; MONOCYTES ABSOLUTE 0.52 10/3/uL (0.21-1.20); NEUTROPHILS 47.9 %; NEUTROPHILS ABSOLUTE 2.72 10/3/uL (2.02-8.40); PLATELET COUNT 270 10/3/uL (150-400); RBC DISTRIBUTION WIDTH 13.9 % (12.0-16.0); RED CELL COUNT 4.15 10/6/uL (4.0-5.6); WHITE BLOOD CELLS 5.7 10/3/uL (4.5-10.5)
[2017-03-17 06:51] LABS: BUN (BLOOD UREA NITROGEN) 5 MG/DL (6-23); CALCIUM, SERUM 7.9 MG/DL (8.5-10.4); CHLORIDE, SERUM 114 MMOL/L (96-112); CO2 (CARBON DIOXIDE) 24 MMOL/L (24-34); CREATININE 0.62 MG/DL (0.55-1.02); GFR AFRICAN AMERICAN 106 ML/MIN (>=60); GFR NON AFRICAN AMERICAN 91 ML/MIN (>=60); GLUCOSE, SERUM 70 MG/DL (60-99); POTASSIUM, SERUM 3.8 MMOL/L (3.5-5.3); SODIUM, SERUM 144 MMOL/L (135-148)
[2017-03-18 09:29] LABS: CHOL/HDL RATIO(NOT ORDER) 3.8 (0-5)
[2017-03-19 03:44] LABS: BASOPHILS 0.3 %; BASOPHILS ABSOLUTE 0.02 10/3/uL (0.0-0.16); EOSINOPHILS 1.9 %; EOSINOPHILS ABSOLUTE 0.12 10/3/uL (0.0-0.53); HEMATOCRIT 39.1 % (36.0-48.0); IMMATURE GRANULOCYTES 0.3 %; IMMATURE GRANULOCYTES ABSOLUTE 0.02 10/3/uL (0.0-0.11); LYMPHOCYTES 26.2 %; LYMPHOCYTES ABSOLUTE 1.69 10/3/uL (0.67-4.30); MEAN CORPUS HGB CONC 33.2 g/dL (32.0-36.0); MEAN CORPUSCULAR VOLUME 90.3 fL (80-100); MEAN PLATELET VOLUME 10.8 fL (9.2-13.0); MONOCYTES 11.8 %; MONOCYTES ABSOLUTE 0.76 10/3/uL (0.21-1.20); NEUTROPHILS 59.5 %; NEUTROPHILS ABSOLUTE 3.84 10/3/uL (2.02-8.40); PLATELET COUNT 284 10/3/uL (150-400); RBC DISTRIBUTION WIDTH 13.6 % (12.0-16.0); RED CELL COUNT 4.33 10/6/uL (4.0-5.6); WHITE BLOOD CELLS 6.5 10/3/uL (4.5-10.5)
[2017-03-19 03:47] LABS: MANUAL DIFF NO %
[2017-03-19 05:46] LABS: BUN (BLOOD UREA NITROGEN) 6 MG/DL (6-23); CALCIUM, SERUM 8.4 MG/DL (8.5-10.4); CHLORIDE, SERUM 113 MMOL/L (96-112); CO2 (CARBON DIOXIDE) 25 MMOL/L (24-34); CREATININE 0.61 MG/DL (0.55-1.02); GFR AFRICAN AMERICAN 106 ML/MIN (>=60); GFR NON AFRICAN AMERICAN 92 ML/MIN (>=60); POTASSIUM, SERUM 3.7 MMOL/L (3.5-5.3); SODIUM, SERUM 143 MMOL/L (135-148)
[2017-03-19 05:47] LABS: GLUCOSE, SERUM 85 MG/DL (60-99)
[2017-03-22 05:58] LABS: BASOPHILS 0.4 %; BASOPHILS ABSOLUTE 0.02 10/3/uL (0.0-0.16); EOSINOPHILS 1.8 %; HEMATOCRIT 38.4 % (36.0-48.0); HEMOGLOBIN 12.7 g/dL (12.0-16.0); IMMATURE GRANULOCYTES 0.2 %; IMMATURE GRANULOCYTES ABSOLUTE 0.01 10/3/uL (0.0-0.11); LYMPHOCYTES 27.4 %; LYMPHOCYTES ABSOLUTE 1.49 10/3/uL (0.67-4.30); MEAN CORPUS HGB CONC 33.1 g/dL (32.0-36.0); MEAN CORPUSCULAR VOLUME 90.6 fL (80-100); MEAN PLATELET VOLUME 10.9 fL (9.2-13.0); MONOCYTES 12.3 %; MONOCYTES ABSOLUTE 0.67 10/3/uL (0.21-1.20); NEUTROPHILS 57.9 %; NEUTROPHILS ABSOLUTE 3.14 10/3/uL (2.02-8.40); PLATELET COUNT 264 10/3/uL (150-400); RBC DISTRIBUTION WIDTH 13.8 % (12.0-16.0); RED CELL COUNT 4.24 10/6/uL (4.0-5.6); WHITE BLOOD CELLS 5.4 10/3/uL (4.5-10.5)
[2017-03-22 06:00] LABS: MANUAL DIFF NO %
[2017-03-22 06:10] LABS: BUN (BLOOD UREA NITROGEN) 6 MG/DL (6-23); CALCIUM, SERUM 8.5 MG/DL (8.5-10.4); CHLORIDE, SERUM 115 MMOL/L (96-112); CO2 (CARBON DIOXIDE) 22 MMOL/L (24-34); CREATININE 0.75 MG/DL (0.55-1.02); GFR AFRICAN AMERICAN 93 ML/MIN (>=60); GFR NON AFRICAN AMERICAN 80 ML/MIN (>=60); POTASSIUM, SERUM 3.1 MMOL/L (3.5-5.3); SODIUM, SERUM 147 MMOL/L (135-148)
[2017-03-22 06:11] LABS: GLUCOSE, SERUM 178 MG/DL (60-99)
[2017-03-22 18:06] LABS: FOLATE 16.9 NG/ML (>5.2)
[2017-03-24 04:47] LABS: BASOPHILS 0.5 %; BASOPHILS ABSOLUTE 0.02 10/3/uL (0.0-0.16); EOSINOPHILS 2.1 %; EOSINOPHILS ABSOLUTE 0.09 10/3/uL (0.0-0.53); HEMATOCRIT 40.1 % (36.0-48.0); HEMOGLOBIN 13.9 g/dL (12.0-16.0); IMMATURE GRANULOCYTES 0.2 %; IMMATURE GRANULOCYTES ABSOLUTE 0.01 10/3/uL (0.0-0.11); LYMPHOCYTES 32.5 %; LYMPHOCYTES ABSOLUTE 1.42 10/3/uL (0.67-4.30); MEAN CORPUS HGB CONC 34.7 g/dL (32.0-36.0); MEAN CORPUSCULAR HEMOGLOB 31.1 pg (26.0-34.0); MEAN CORPUSCULAR VOLUME 89.7 fL (80-100); MEAN PLATELET VOLUME 10.8 fL (9.2-13.0); MONOCYTES 13.7 %; NEUTROPHILS ABSOLUTE 2.23 10/3/uL (2.02-8.40); PLATELET COUNT 235 10/3/uL (150-400); RED CELL COUNT 4.47 10/6/uL (4.0-5.6); WHITE BLOOD CELLS 4.4 10/3/uL (4.5-10.5)
[2017-03-24 04:48] LABS: MANUAL DIFF NO %
[2017-03-24 05:02] LABS: BUN (BLOOD UREA NITROGEN) 7 MG/DL (6-23); CALCIUM, SERUM 8.4 MG/DL (8.5-10.4); CHLORIDE, SERUM 113 MMOL/L (96-112); CO2 (CARBON DIOXIDE) 26 MMOL/L (24-34); CREATININE 0.71 MG/DL (0.55-1.02); DEPAKENE (VALPROIC ACID) 57.8 MCG/ML (50.0-100.0); GFR AFRICAN AMERICAN 99 ML/MIN (>=60); GFR NON AFRICAN AMERICAN 86 ML/MIN (>=60); GLUCOSE, SERUM 147 MG/DL (60-99); POTASSIUM, SERUM 3.2 MMOL/L (3.5-5.3); SODIUM, SERUM 148 MMOL/L (135-148)
[2017-03-25 04:49] LABS: BUN (BLOOD UREA NITROGEN) 8 MG/DL (6-23); CALCIUM, SERUM 8.7 MG/DL (8.5-10.4); CHLORIDE, SERUM 114 MMOL/L (96-112); CO2 (CARBON DIOXIDE) 22 MMOL/L (24-34); CREATININE 0.64 MG/DL (0.55-1.02); GFR AFRICAN AMERICAN 104 ML/MIN (>=60); GFR NON AFRICAN AMERICAN 90 ML/MIN (>=60); GLUCOSE, SERUM 157 MG/DL (60-99); POTASSIUM, SERUM 3.4 MMOL/L (3.5-5.3); SODIUM, SERUM 144 MMOL/L (135-148)
[2017-03-27 04:15] LABS: BASOPHILS 0.2 %; BASOPHILS ABSOLUTE 0.01 10/3/uL (0.0-0.16); EOSINOPHILS 1.6 %; EOSINOPHILS ABSOLUTE 0.07 10/3/uL (0.0-0.53); HEMOGLOBIN 12.5 g/dL (12.0-16.0); IMMATURE GRANULOCYTES 0.2 %; IMMATURE GRANULOCYTES ABSOLUTE 0.01 10/3/uL (0.0-0.11); LYMPHOCYTES 23.8 %; LYMPHOCYTES ABSOLUTE 1.05 10/3/uL (0.67-4.30); MEAN CORPUSCULAR HEMOGLOB 29.7 pg (26.0-34.0); MEAN CORPUSCULAR VOLUME 90.3 fL (80-100); MEAN PLATELET VOLUME 11.5 fL (9.2-13.0); MONOCYTES 10.9 %; MONOCYTES ABSOLUTE 0.48 10/3/uL (0.21-1.20); NEUTROPHILS 63.3 %; PLATELET COUNT 211 10/3/uL (150-400); RBC DISTRIBUTION WIDTH 14.2 % (12.0-16.0); RED CELL COUNT 4.21 10/6/uL (4.0-5.6); WHITE BLOOD CELLS 4.4 10/3/uL (4.5-10.5)
[2017-03-27 04:16] LABS: MANUAL DIFF NO %; MEAN CORPUS HGB CONC 32.9 g/dL (32.0-36.0)
[2017-03-27 04:26] LABS: BUN (BLOOD UREA NITROGEN) 7 MG/DL (6-23); CALCIUM, SERUM 8.5 MG/DL (8.5-10.4); CHLORIDE, SERUM 113 MMOL/L (96-112); CO2 (CARBON DIOXIDE) 23 MMOL/L (24-34); CREATININE 0.66 MG/DL (0.55-1.02); GFR AFRICAN AMERICAN 103 ML/MIN (>=60); GFR NON AFRICAN AMERICAN 89 ML/MIN (>=60); GLUCOSE, SERUM 149 MG/DL (60-99); PHOSPHORUS, SERUM 2.7 MG/DL (2.5-4.5); POTASSIUM, SERUM 3.2 MMOL/L (3.5-5.3); SODIUM, SERUM 144 MMOL/L (135-148)
[2017-03-28 04:00] LABS: BASOPHILS 0.3 %; BASOPHILS ABSOLUTE 0.01 10/3/uL (0.0-0.16); EOSINOPHILS 1.9 %; EOSINOPHILS ABSOLUTE 0.07 10/3/uL (0.0-0.53); HEMATOCRIT 39.1 % (36.0-48.0); LYMPHOCYTES 35.7 %; MEAN CORPUS HGB CONC 33.2 g/dL (32.0-36.0); MEAN CORPUSCULAR HEMOGLOB 29.9 pg (26.0-34.0); MEAN CORPUSCULAR VOLUME 89.9 fL (80-100); MEAN PLATELET VOLUME 11.2 fL (9.2-13.0); MONOCYTES 12.9 %; MONOCYTES ABSOLUTE 0.47 10/3/uL (0.21-1.20); NEUTROPHILS 49.2 %; NEUTROPHILS ABSOLUTE 1.79 10/3/uL (2.02-8.40); PLATELET COUNT 203 10/3/uL (150-400); RBC DISTRIBUTION WIDTH 14.2 % (12.0-16.0); RED CELL COUNT 4.35 10/6/uL (4.0-5.6); WHITE BLOOD CELLS 3.6 10/3/uL (4.5-10.5)
[2017-03-28 04:02] LABS: MANUAL DIFF NO %
[2017-03-28 04:15] LABS: BUN (BLOOD UREA NITROGEN) 5 MG/DL (6-23); CALCIUM, SERUM 8.4 MG/DL (8.5-10.4); CHLORIDE, SERUM 116 MMOL/L (96-112); CO2 (CARBON DIOXIDE) 23 MMOL/L (24-34); CREATININE 0.66 MG/DL (0.55-1.02); GFR AFRICAN AMERICAN 103 ML/MIN (>=60); GFR NON AFRICAN AMERICAN 89 ML/MIN (>=60); GLUCOSE, SERUM 152 MG/DL (60-99); PHOSPHORUS, SERUM 2.3 MG/DL (2.5-4.5); POTASSIUM, SERUM 3.3 MMOL/L (3.5-5.3); SODIUM, SERUM 147 MMOL/L (135-148)
[2017-03-29 06:54] LABS: BUN (BLOOD UREA NITROGEN) 6 MG/DL (6-23); CALCIUM, SERUM 8.5 MG/DL (8.5-10.4); CHLORIDE, SERUM 114 MMOL/L (96-112); CO2 (CARBON DIOXIDE) 21 MMOL/L (24-34); CREATININE 0.68 MG/DL (0.55-1.02); GFR AFRICAN AMERICAN 102 ML/MIN (>=60); GFR NON AFRICAN AMERICAN 88 ML/MIN (>=60); GLUCOSE, SERUM 123 MG/DL (60-99); POTASSIUM, SERUM 3.2 MMOL/L (3.5-5.3); SODIUM, SERUM 143 MMOL/L (135-148)
[2017-03-29 17:48] LABS: BUN (BLOOD UREA NITROGEN) 5 MG/DL (6-23); CALCIUM, SERUM 8.3 MG/DL (8.5-10.4); CHLORIDE, SERUM 115 MMOL/L (96-112); CO2 (CARBON DIOXIDE) 22 MMOL/L (24-34); CREATININE 0.74 MG/DL (0.55-1.02); GFR AFRICAN AMERICAN 94 ML/MIN (>=60); GFR NON AFRICAN AMERICAN 82 ML/MIN (>=60); POTASSIUM, SERUM 3.3 MMOL/L (3.5-5.3); SODIUM, SERUM 139 MMOL/L (135-148)
[2017-03-29 17:49] LABS: GLUCOSE, SERUM 166 MG/DL (60-99)
== END 2017-03-30 14:58 | disposition hospice, inpatient (51) | DRG 40 ==
LOC: ER 11:07 → 7NO 16:15
PROVIDERS: Emergency Medicine; Hospitalist; Internal Medicine; Internal Medicine Pulmonary Disease; Nurse Practitioner
DX: I63.8 Other cerebral infarction (principal); G93.41 Metabolic encephalopathy; I24.8 Other forms of acute ischemic heart disease; E86.0 Dehydration; N39.0 Urinary tract infection, site not specified; B35.1 Tinea unguium; E11.9 Type 2 diabetes mellitus without complications; I10 Essential (primary) hypertension; B95.2 Enterococcus as the cause of diseases classified elsewhere; E78.2 Mixed hyperlipidemia; T79.6XXA Traumatic ischemia of muscle, initial encounter; L60.2 Onychogryphosis; E87.6 Hypokalemia; H35.30 Unspecified macular degeneration; K21.9 Gastro-esophageal reflux disease without esophagitis; M79.601 Pain in right arm; F32.9 Major depressive disorder, single episode, unspecified; M19.90 Unspecified osteoarthritis, unspecified site; G40.909 Epilepsy, unspecified, not intractable, without status epilepticus; Z85.51 Personal history of malignant neoplasm of bladder; Z79.4 Long term (current) use of insulin; Z88.0 Allergy status to penicillin; Z88.5 Allergy status to narcotic agent; Z88.1 Allergy status to other antibiotic agents; Z82.49 Family history of ischemic heart disease and other diseases of the circulatory system; Z87.891 Personal history of nicotine dependence; Z91.81 History of falling; Z66 Do not resuscitate; Z79.82 Long term (current) use of aspirin; Z79.02 Long term (current) use of antithrombotics/antiplatelets; Z92.21 Personal history of antineoplastic chemotherapy; Z90.49 Acquired absence of other specified parts of digestive tract
CPT/HCPCS: 70450; 70553; 71010; 73030-RT; 73060-RT; 73090-RT; 80048; 80053; 80061; 80069; 80164; 80305; 80307; 81001; 81050; 82140; 82306; 82550; 82553; 82575; 82607; 82746; 82962; 83036; 83735; 83880; 84100; 84132; 84134; 84145; 84156; 84439; 84443; 84484; 85025; 85610; 85730; 87040; 87077; 87086; 87186; 93005; 93880; 94640; 95816; 96374; 97110-GO; 97110-GP; 97162-GP; 97164-GP; 97166-GO; 97168-GO; 97530-GP; 97535-GO; 99285; A9270-GY; A9577; C8929; G8978-CM-GP; G8978-CN-GP; G8979-CL-GP; G8979-CM-GP; G8987-CL-GO; G8987-CM-GO; G8988-CK-GO; G8988-CL-GO; J0360; J1170; J1630; J1956; J2405; J3010; J3475; J3486; Q9957